=== PATIENT | female | born 1940 | race Caucasian/White ===

== ENCOUNTER 2020-01-11 10:41 | Inpatient (IN) ==
[2020-01-11 11:28] LABS: Hematocrit 49.8 % (35.3-44.9); Hemoglobin 16.1 g/dL (11.5-15.4); Mean Corpuscular HGB Conc 32.3 g/dL (31.6-35.5); Mean Corpuscular Hemoglobin 28.8 pg (28.0-33.3); Mean Corpuscular Volume 88.9 fL (83.0-100.0); Mean Platelet Volume 11.1 fL (9.4-12.4); Platelet Count 229 K/mcL (140-400); Red Cell Distribution Width 12.8 % (11.5-14.5); Segmented Neutrophils % 63.1 %; White Blood Count 6.3 K/mcL (4.3-11.1)
[2020-01-11 11:29] LABS: Basophils % 0.6 %; Eosinophils # 0.1 K/mcL (0.0-0.6); Eosinophils % 2.2 %; Immature Granulocytes % 0.3 % (0-4); Lymphocytes # 1.6 K/mcL (0.6-4.6); Lymphocytes % 24.8 %; Monocytes # 0.6 K/mcL (0.0-1.3); Neutrophils # 3.9 K/mcL (1.6-8.9)
[2020-01-11 11:34] LABS: INR 1.9; Prothrombin Time 21.1 Seconds (9.4-12.1)
[2020-01-11 11:50] LABS: Alanine Aminotransferase 18 Units/L (7-52); Albumin/Globulin Ratio 1.3 (1.1-2.2); Alkaline Phosphatase 82 Units/L (34-104); Aspartate Amino Transferase 18 Units/L (13-39); BUN/Creatinine Ratio 15 (6-26); Bilirubin,Total 1.3 mg/dL (0.3-1.0); Blood Urea Nitrogen 16 mg/dL (8-23); Calcium 9.7 mg/dL (8.6-10.3); Carbon Dioxide 25 mEq/L (23-29); Chloride 98 mEq/L (98-107); Globulin 3.2 g/dL (2.4-3.5); Glucose 397 mg/dL (70-105); Osmolality,Calculated 290 (280-300); Potassium 4.6 mEq/L (3.5-5.1); Sodium 131 mEq/L (136-145); Total Protein 7.2 g/dL (6.4-8.9); Troponin I < 0.03 ng/mL (< 0.04); eGFR For African Americans 58 (> 60); eGFR For Non-African Americans 48 (> 60)
[2020-01-11] MEDS ORDERED: Naloxone 0.4 MG/ML INJ IVP PRN (12:32)
[2020-01-11] MEDS ORDERED: D5% in Water 1,000 ML IVC PRN (12:33)
[2020-01-11] MEDS ORDERED: Dextrose Gel 15 GM/37.5 ML TUBE PO PRN ×2 (12:33)
[2020-01-11] MEDS ORDERED: *HR* Dextrose 50 % in Water (Vial) 50 ML VIAL IVP PRN (12:33)
[2020-01-11] MEDS ORDERED: Perflutren Lipid Microsphere 1.3 ML in 0.9 % Sodium Chloride 8.7 ML IVP PRN (12:38)
[2020-01-11 13:09] LABS: Thyroid Stimulating Hormone 5.033 mcIU/mL (0.340-5.600)
[2020-01-11] MEDS: Insulin DETEMIR 100 UNIT/ML X5UNITS SQ SCH ×2 (15:11→17:33)
[2020-01-11] MEDS: Insulin LISPRO 300 UNITS/3 ML VIAL SQ SCH ×3 (15:11→20:45)
[2020-01-11] MEDS: Apixaban 5 MG TABLET PO SCH (20:42)
[2020-01-11] MEDS: Sennosides/Docusate Sodium TABLET PO SCH (20:43)
[2020-01-12] MEDS ORDERED: Regadenoson 0.4 MG/5 ML SYRINGE IVP ONE (06:25)
[2020-01-12] MEDS: amLODIPine 5 MG TABLET PO SCH (09:34)
[2020-01-12] MEDS: Sennosides/Docusate Sodium TABLET PO SCH ×2 (09:34→20:55)
[2020-01-12] MEDS: Apixaban 5 MG TABLET PO SCH (09:35)
[2020-01-12] MEDS: Insulin DETEMIR 100 UNIT/ML X5UNITS SQ SCH (09:35)
[2020-01-12] MEDS: Insulin LISPRO 300 UNITS/3 ML VIAL SQ SCH ×4 (09:35→20:56)
[2020-01-12] MEDS: atenoloL 25 MG TABLET PO SCH (09:35)
[2020-01-12] MEDS: Aspirin Enteric Coated 81 MG Tablet PO SCH (09:35)
[2020-01-13] MEDS ORDERED: Morphine Sulfate 2 MG/ML SYRINGE IVP PRN (06:23)
[2020-01-13] MEDS: Insulin LISPRO 300 UNITS/3 ML VIAL SQ SCH ×4 (07:30→20:41)
[2020-01-13] MEDS: Sennosides/Docusate Sodium TABLET PO SCH ×2 (10:46→21:25)
[2020-01-13] MEDS: amLODIPine 5 MG TABLET PO SCH (10:47)
[2020-01-13] MEDS: atenoloL 25 MG TABLET PO SCH (10:47)
[2020-01-13] MEDS: Aspirin Enteric Coated 81 MG Tablet PO SCH (10:47)
[2020-01-13] MEDS: Insulin DETEMIR 100 UNIT/ML X5UNITS SQ SCH (10:48)
[2020-01-13] MEDS ORDERED: *HR* Midazolam HCl 2 MG/2 ML VIAL ONE (11:28)
[2020-01-13] MEDS ORDERED: *HR* FentaNYL (PF) 100 MCG/2 ML VIAL ONE (11:28)
[2020-01-13] MEDS ORDERED: Nitroglycerin 1,000 MCG/10 ML VIAL IV ONE (11:46)
[2020-01-13] MEDS ORDERED: ISOVUE-370 200 ML INFUS..BTL ONE (11:46)
[2020-01-13] MEDS ORDERED: *HR* Heparin 10,000 UNIT/10 ML VIAL ONE (11:46)
[2020-01-13] MEDS ORDERED: 0.9 % Sodium Chloride 2,000 ML ONE (11:46)
[2020-01-13] MEDS ORDERED: Heparin 1,000 UNITS/500 mL 500 ML ONE (11:46)
[2020-01-13] MEDS ORDERED: *HR* Heparin 5,000 UNIT/ML VIAL IVP PRN ×3 (14:43→15:21)
[2020-01-13] MEDS ORDERED: *HR* Heparin 5,000 UNIT/ML VIAL IVP ONE ×2 (14:43→15:21)
[2020-01-13] MEDS ORDERED: Heparin 25,000UNIT/250ML 1/2NS 25,000 UNIT/250 ML IV.SOLN IVC SCH ×2 (14:45→15:30)
[2020-01-13 15:52] LABS: Hematocrit 49.4 % (35.3-44.9); Hemoglobin 16.2 g/dL (11.5-15.4); Mean Corpuscular HGB Conc 32.8 g/dL (31.6-35.5); Mean Corpuscular Hemoglobin 29.7 pg (28.0-33.3); Mean Corpuscular Volume 90.5 fL (83.0-100.0); Mean Platelet Volume 10.6 fL (9.4-12.4); Platelet Count 227 K/mcL (140-400); Red Blood Count 5.46 M/mcL (3.82-4.97); White Blood Count 5.9 K/mcL (4.3-11.1)
[2020-01-13 16:03] LABS: INR 1.3; Prothrombin Time 14.7 Seconds (9.4-12.1)
[2020-01-13 16:08] LABS: Heparin anti-factor XA UFH 1.04 IU/mL (0.30-0.70)
[2020-01-13] MEDS: Heparin 25,000UNIT/250ML 1/2NS 25,000 UNIT/250 ML IV.SOLN IVC SCH (16:27)
[2020-01-14 02:18] LABS: BUN/Creatinine Ratio 20 (6-26); Blood Urea Nitrogen 18 mg/dL (8-23); Calcium 9.2 mg/dL (8.6-10.3); Carbon Dioxide 22 mEq/L (23-29); Chloride 105 mEq/L (98-107); Glucose 182 mg/dL (70-105); Magnesium 1.8 mg/dL (1.6-2.6); Osmolality,Calculated 287 (280-300); Phosphorous 3.5 mg/dL (2.7-4.5); Potassium 3.9 mEq/L (3.5-5.1); Sodium 135 mEq/L (136-145); eGFR For African Americans > 60 (> 60); eGFR For Non-African Americans 59 (> 60)
[2020-01-14] MEDS: Insulin LISPRO 300 UNITS/3 ML VIAL SQ SCH ×4 (07:30→20:04)
[2020-01-14] MEDS: Sennosides/Docusate Sodium TABLET PO SCH ×2 (11:29→20:09)
[2020-01-14] MEDS: Aspirin Enteric Coated 81 MG Tablet PO SCH (11:33)
[2020-01-14] MEDS: Insulin DETEMIR 100 UNIT/ML X5UNITS SQ SCH (11:34)
[2020-01-14] MEDS: amLODIPine 5 MG TABLET PO SCH (11:34)
[2020-01-14] MEDS: atenoloL 25 MG TABLET PO SCH (11:34)
[2020-01-14] MEDS: Heparin 25,000UNIT/250ML 1/2NS 25,000 UNIT/250 ML IV.SOLN IVC SCH (20:45)
[2020-01-15 00:59] LABS: Basophils # 0.1 K/mcL (0.0-0.2); Eosinophils # 0.2 K/mcL (0.0-0.6); Eosinophils % 3.7 %; Hematocrit 46.4 % (35.3-44.9); Hemoglobin 15.2 g/dL (11.5-15.4); Immature Granulocytes % 0.2 % (0-4); Lymphocytes # 2.2 K/mcL (0.6-4.6); Lymphocytes % 36.1 %; Mean Corpuscular HGB Conc 32.8 g/dL (31.6-35.5); Mean Corpuscular Hemoglobin 28.8 pg (28.0-33.3); Mean Corpuscular Volume 87.9 fL (83.0-100.0); Monocytes # 0.7 K/mcL (0.0-1.3); Monocytes % 11.2 %; Platelet Count 239 K/mcL (140-400); Red Blood Count 5.28 M/mcL (3.82-4.97); Segmented Neutrophils % 47.8 %; White Blood Count 6.2 K/mcL (4.3-11.1)
[2020-01-15 01:19] LABS: BUN/Creatinine Ratio 16 (6-26); Blood Urea Nitrogen 16 mg/dL (8-23); Calcium 9.6 mg/dL (8.6-10.3); Carbon Dioxide 25 mEq/L (23-29); Chloride 105 mEq/L (98-107); Glucose 102 mg/dL (70-105); Osmolality,Calculated 287 (280-300); Potassium 3.8 mEq/L (3.5-5.1); Sodium 138 mEq/L (136-145); eGFR For African Americans > 60 (> 60); eGFR For Non-African Americans 52 (> 60)
[2020-01-15] MEDS: Nitroglycerin 0.4 MG TAB.SUBL SL PRN (06:52)
[2020-01-15 08:05] LABS: INR 1.2; Prothrombin Time 13.5 Seconds (9.4-12.1)
[2020-01-15 08:07] LABS: Activated Partial Thrombo Time 54.4 Seconds (26.0-36.0)
[2020-01-15 08:19] LABS: Chol/HDL Ratio 3.1 (0-4.9)
[2020-01-15] MEDS: amLODIPine 5 MG TABLET PO SCH (08:30)
[2020-01-15] MEDS: atenoloL 25 MG TABLET PO SCH (08:30)
[2020-01-15] MEDS: Aspirin Enteric Coated 81 MG Tablet PO SCH (08:30)
[2020-01-15] MEDS: Sennosides/Docusate Sodium TABLET PO SCH ×2 (08:30→21:05)
[2020-01-15] MEDS: Insulin LISPRO 300 UNITS/3 ML VIAL SQ SCH ×4 (08:35→20:58)
[2020-01-15] MEDS: Insulin DETEMIR 100 UNIT/ML X5UNITS SQ SCH (08:35)
[2020-01-15 10:05] LABS: Estimated Average Glucose 315 mg/dl
[2020-01-15 13:34] LABS: Bacteria,Urine Few per hpf (None-Few); Bilirubin,Urine Negative (Negative); Blood,Urine Trace (Negative); Clarity,Urine Clear (Clear); Color,Urine Light-Yellow (Yellow); Glucose,Urine (UA) 200 mg/dL (Normal); Hyaline Casts,Urine Few per lpf (None Seen); Ketones,Urine Negative (Negative); Leukocyte Esterase,Urine Large (Negative); Mucus,Urine Few per lpf (None-Few); Nitrite,Urine Negative (Negative); PH,Urine 5.5 pH Units (5.0-8.0); Protein,Urine Negative (Neg-Trace); RBC,Urine 0-3 per hpf (0-3); Specific Gravity,Urine 1.011 (1.010-1.025); Squamous Epithelial Cell,Urine Few per hpf (None-Few); Transitional Epi Cells,Urine Few per hpf (None-Few); Urobilinogen,Urine Normal (Normal); WBC,Urine 15-30 per hpf (0-3)
[2020-01-15] MEDS ORDERED: Insulin DETEMIR 100 UNIT/ML X5UNITS SQ ONE (17:06)
[2020-01-16] MEDS: Heparin 25,000UNIT/250ML 1/2NS 25,000 UNIT/250 ML IV.SOLN IVC SCH ×2 (00:23→10:52)
[2020-01-16] MEDS: *HR* Heparin 5,000 UNIT/ML VIAL IVP PRN ×2 (00:24→19:04)
[2020-01-16 06:53] LABS: BUN/Creatinine Ratio 18 (6-26); Blood Urea Nitrogen 17 mg/dL (8-23); Calcium 8.9 mg/dL (8.6-10.3); Carbon Dioxide 23 mEq/L (23-29); Chloride 106 mEq/L (98-107); Glucose 191 mg/dL (70-105); Osmolality,Calculated 291 (280-300); Potassium 3.9 mEq/L (3.5-5.1); Sodium 137 mEq/L (136-145); eGFR For African Americans > 60 (> 60); eGFR For Non-African Americans 57 (> 60)
[2020-01-16 07:36] LABS: Basophils % 0.6 %; Eosinophils # 0.2 K/mcL (0.0-0.6); Eosinophils % 3.5 %; Hematocrit 44.1 % (35.3-44.9); Immature Granulocytes % 0.3 % (0-4); Lymphocytes # 1.9 K/mcL (0.6-4.6); Lymphocytes % 30.8 %; Mean Corpuscular HGB Conc 31.7 g/dL (31.6-35.5); Mean Corpuscular Hemoglobin 28.3 pg (28.0-33.3); Mean Corpuscular Volume 89.3 fL (83.0-100.0); Mean Platelet Volume 11.7 fL (9.4-12.4); Monocytes # 0.7 K/mcL (0.0-1.3); Monocytes % 11.3 %; Neutrophils # 3.4 K/mcL (1.6-8.9); Platelet Count 201 K/mcL (140-400); Red Blood Count 4.94 M/mcL (3.82-4.97); Segmented Neutrophils % 53.5 %; White Blood Count 6.3 K/mcL (4.3-11.1)
[2020-01-16] MEDS: Insulin LISPRO 300 UNITS/3 ML VIAL SQ SCH ×4 (08:30→20:19)
[2020-01-16] MEDS: Insulin DETEMIR 100 UNIT/ML X5UNITS SQ SCH (09:34)
[2020-01-16] MEDS: amLODIPine 5 MG TABLET PO SCH (09:35)
[2020-01-16] MEDS: Sennosides/Docusate Sodium TABLET PO SCH ×2 (09:35→20:25)
[2020-01-16] MEDS: atenoloL 25 MG TABLET PO SCH (09:35)
[2020-01-16] MEDS: Aspirin Enteric Coated 81 MG Tablet PO SCH (09:35)
[2020-01-17 00:59] LABS: Basophils % 0.6 %; Eosinophils # 0.2 K/mcL (0.0-0.6); Eosinophils % 2.4 %; Hematocrit 42.7 % (35.3-44.9); Immature Granulocytes % 0.1 % (0-4); Lymphocytes # 1.7 K/mcL (0.6-4.6); Mean Corpuscular HGB Conc 32.8 g/dL (31.6-35.5); Mean Corpuscular Hemoglobin 29.2 pg (28.0-33.3); Mean Corpuscular Volume 89.1 fL (83.0-100.0); Monocytes # 0.8 K/mcL (0.0-1.3); Monocytes % 11.8 %; Neutrophils # 4.1 K/mcL (1.6-8.9); Platelet Count 200 K/mcL (140-400); Red Blood Count 4.79 M/mcL (3.82-4.97); Segmented Neutrophils % 60.1 %; White Blood Count 6.8 K/mcL (4.3-11.1)
[2020-01-17 01:12] LABS: BUN/Creatinine Ratio 16 (6-26); Blood Urea Nitrogen 16 mg/dL (8-23); Calcium 9.1 mg/dL (8.6-10.3); Carbon Dioxide 24 mEq/L (23-29); Chloride 103 mEq/L (98-107); Glucose 195 mg/dL (70-105); Magnesium 1.6 mg/dL (1.6-2.6); Osmolality,Calculated 287 (280-300); Potassium 4.1 mEq/L (3.5-5.1); Sodium 135 mEq/L (136-145); eGFR For African Americans > 60 (> 60); eGFR For Non-African Americans 55 (> 60)
[2020-01-17] MEDS: *HR* Heparin 5,000 UNIT/ML VIAL IVP PRN (01:50)
[2020-01-17] MEDS: Magnesium Oxide 400 MG TABLET PO SCH (08:08)
[2020-01-17] MEDS: Aspirin Enteric Coated 81 MG Tablet PO SCH (08:08)
[2020-01-17] MEDS: Chlorhexidine Rinse 15 ML MOUTHWASH MM SCH ×2 (08:08→20:28)
[2020-01-17] MEDS: Insulin LISPRO 300 UNITS/3 ML VIAL SQ SCH ×5 (08:09→23:39)
[2020-01-17] MEDS: Nitroglycerin 0.4 MG TAB.SUBL SL PRN (08:10)
[2020-01-17] MEDS: amLODIPine 5 MG TABLET PO SCH (08:11)
[2020-01-17] MEDS: Sennosides/Docusate Sodium TABLET PO SCH ×2 (08:11→20:35)
[2020-01-17] MEDS: atenoloL 25 MG TABLET PO SCH (08:18)
[2020-01-17] MEDS: Insulin DETEMIR 100 UNIT/ML X5UNITS SQ SCH (08:21)
[2020-01-17] MEDS: Heparin 25,000UNIT/250ML 1/2NS 25,000 UNIT/250 ML IV.SOLN IVC SCH (17:47)
[2020-01-18] MEDS: Heparin 25,000UNIT/250ML 1/2NS 25,000 UNIT/250 ML IV.SOLN IVC SCH (05:41)
[2020-01-18] MEDS: Insulin LISPRO 300 UNITS/3 ML VIAL SQ SCH ×2 (05:58→16:14)
[2020-01-18] MEDS ORDERED: Dextrose 50 % in Water (Vial) 30 ML, Sodium Bicarbonate 20 MEQ, Lidocaine 1% 5 ML, Insu... TH ONE ×3 (06:00)
[2020-01-18] MEDS ORDERED: Dextrose 50 % in Water (Vial) 30 ML, Sodium Bicarbonate 20 MEQ, Potassium Chloride 15 M... TH ONE (06:00)
[2020-01-18] MEDS ORDERED: Insulin Human Regular 100 UNIT in 0.9 % Sodium Chloride 100 ML IV PRN (06:00)
[2020-01-18] MEDS ORDERED: Aspirin 81 MG TAB.CHEW PO ONE (06:00)
[2020-01-18] MEDS ORDERED: Norepinephrine 4 MG in 0.9 % Sodium Chloride 250 ML IVC PRN (06:00)
[2020-01-18] MEDS ORDERED: Heparin 15,000 UNIT in 0.9 % Sodium Chloride 500 ML IV ONE (06:00)
[2020-01-18 06:13] LABS: Basophils # 0.1 K/mcL (0.0-0.2); Basophils % 0.6 %; Eosinophils # 0.1 K/mcL (0.0-0.6); Eosinophils % 1.5 %; Hemoglobin 14.8 g/dL (11.5-15.4); Immature Granulocytes % 0.4 % (0-4); Lymphocytes # 1.7 K/mcL (0.6-4.6); Lymphocytes % 20.6 %; Mean Corpuscular HGB Conc 32.2 g/dL (31.6-35.5); Mean Corpuscular Volume 90.2 fL (83.0-100.0); Mean Platelet Volume 11.6 fL (9.4-12.4); Monocytes # 0.9 K/mcL (0.0-1.3); Monocytes % 10.8 %; Neutrophils # 5.6 K/mcL (1.6-8.9); Platelet Count 242 K/mcL (140-400); Red Cell Distribution Width 12.7 % (11.5-14.5); Segmented Neutrophils % 66.1 %; White Blood Count 8.4 K/mcL (4.3-11.1)
[2020-01-18 06:28] LABS: INR 1.2; Prothrombin Time 13.3 Seconds (9.4-12.1)
[2020-01-18 06:32] LABS: BUN/Creatinine Ratio 14 (6-26); Blood Urea Nitrogen 14 mg/dL (8-23); Calcium 9.5 mg/dL (8.6-10.3); Carbon Dioxide 24 mEq/L (23-29); Chloride 103 mEq/L (98-107); Glucose 213 mg/dL (70-105); Magnesium 1.7 mg/dL (1.6-2.6); Osmolality,Calculated 287 (280-300); Potassium 4.2 mEq/L (3.5-5.1); Sodium 135 mEq/L (136-145); eGFR For African Americans > 60 (> 60); eGFR For Non-African Americans 54 (> 60)
[2020-01-18] MEDS ORDERED: *HR* Midazolam HCl 5 MG/5 ML VIAL IVP ONE (08:53)
[2020-01-18] MEDS ORDERED: *HR* FentaNYL (PF) 1,000 MCG/20 ML VIAL ONE (08:54)
[2020-01-18] MEDS ORDERED: *HR* Rocuronium Bromide 50 MG/5 ML VIAL ONE (08:55)
[2020-01-18] MEDS ORDERED: *HR* PHENYLEPHRINE 1,000 MCG/10 ML SYRINGE IVP ONE (08:55)
[2020-01-18] MEDS ORDERED: *HR* Etomidate 20 MG/10 ML AMPUL IVP ONE (08:56)
[2020-01-18] MEDS ORDERED: Famotidine 20 MG/2 ML VIAL ONE (08:56)
[2020-01-18] MEDS ORDERED: Calcium Gluconate 1,000 MG/10 ML VIAL ONE (08:58)
[2020-01-18] MEDS ORDERED: Protamine Sulfate 250 MG/25 ML VIAL IVP ONE (08:58)
[2020-01-18] MEDS ORDERED: Tranexamic Acid 1,000 MG/10 ML VIAL ONE ×2 (08:58→15:18)
[2020-01-18] MEDS ORDERED: *HR* Amiodarone 150 MG/3 ML VIAL IVPB ONE (09:01)
[2020-01-18] MEDS: atenoloL 25 MG TABLET PO SCH (09:25)
[2020-01-18] MEDS: Sennosides/Docusate Sodium TABLET PO SCH (09:35)
[2020-01-18] MEDS: Magnesium Oxide 400 MG TABLET PO SCH (09:35)
[2020-01-18] MEDS: amLODIPine 5 MG TABLET PO SCH (09:35)
[2020-01-18] MEDS: Aspirin Enteric Coated 81 MG Tablet PO SCH (09:35)
[2020-01-18] MEDS ORDERED: NiCARdipine 2.5 MG/10 ML Syringe IVPB ONE (09:36)
[2020-01-18] MEDS ORDERED: CeFAZolin Syr 2,000MG/20 ML 2,000 MG/20 ML SYRINGE IVPB ONE (11:00)
[2020-01-18] MEDS ORDERED: Heparin 1,000 UNITS/500 mL IV.SOLN IR ONE (12:09)
[2020-01-18] MEDS ORDERED: *HR* Phenylephrine 10 MG/ML VIAL IVC ONE (12:09)
[2020-01-18] MEDS ORDERED: Albumin Human 25% 25 GM/100 ML IV.SOLN IVPB ONE (12:09)
[2020-01-18] MEDS ORDERED: *HR* Magnesium Sulfate 2 GM/50 ML PIGGYBACK IVPB ONE (12:09)
[2020-01-18] MEDS ORDERED: Tranexamic Acid 1,000 MG/10 ML VIAL IR ONE (12:09)
[2020-01-18] MEDS ORDERED: Clindamycin 600 MG/50 ML IV.SOLN IVPB ONE (12:09)
[2020-01-18] MEDS ORDERED: *HR* Heparin 10,000 UNIT/10 ML VIAL IR ONE (12:09)
[2020-01-18] MEDS ORDERED: Lidocaine 2% Syringe 100 MG/5 ML IVP ONE (12:09)
[2020-01-18] MEDS ORDERED: Mannitol 25% vial 12.5 GM/50 ML VIAL IVPB ONE (12:09)
[2020-01-18 12:23] LABS: ABG Base Excess -2 mEq/L (-2 to 3); ABG Chloride 102 mEq/L (98-107); ABG Glucose 237 mg/dL (60-95); ABG HCO3 25 mEq/L (21-27); ABG Ionized Calcium 1.22 mmol/L (1.15-1.35); ABG Oxygen Saturation 100 % (95-98); ABG PCO2 44 mmHg (35-45); ABG PH 7.35 pH Units (7.32-7.45); ABG PO2 267 mmHg (85-104); ABG TCO2 26 mEq/L (20-26)
[2020-01-18 13:48] LABS: ABG Base Excess -1 mEq/L (-2 to 3); ABG Chloride 102 mEq/L (98-107); ABG Glucose 253 mg/dL (60-95); ABG HCO3 23 mEq/L (21-27); ABG Ionized Calcium 1.18 mmol/L (1.15-1.35); ABG Oxygen Saturation 100 % (95-98); ABG PCO2 34 mmHg (35-45); ABG PH 7.43 pH Units (7.32-7.45); ABG PO2 232 mmHg (85-104); ABG TCO2 24 mEq/L (20-26)
[2020-01-18 14:16] LABS: ABG Base Excess -1 mEq/L (-2 to 3); ABG Chloride 97 mEq/L (98-107); ABG Glucose 286 mg/dL (60-95); ABG HCO3 22 mEq/L (21-27); ABG Ionized Calcium 0.97 mmol/L (1.15-1.35); ABG Oxygen Saturation 100 % (95-98); ABG PCO2 29 mmHg (35-45); ABG PH 7.49 pH Units (7.32-7.45); ABG PO2 630 mmHg (85-104); ABG TCO2 22 mEq/L (20-26)
[2020-01-18 15:08] LABS: ABG Base Excess -2 mEq/L (-2 to 3); ABG Chloride 95 mEq/L (98-107); ABG Glucose 254 mg/dL (60-95); ABG HCO3 22 mEq/L (21-27); ABG Ionized Calcium 1.03 mmol/L (1.15-1.35); ABG PCO2 34 mmHg (35-45); ABG PH 7.42 pH Units (7.32-7.45); ABG PO2 > 630 mmHg (85-104); ABG TCO2 23 mEq/L (20-26)
[2020-01-18 15:34] LABS: ABG Base Excess -2 mEq/L (-2 to 3); ABG Chloride 97 mEq/L (98-107); ABG Glucose 263 mg/dL (60-95); ABG HCO3 22 mEq/L (21-27); ABG Ionized Calcium 1.32 mmol/L (1.15-1.35); ABG Oxygen Saturation 100 % (95-98); ABG PCO2 36 mmHg (35-45); ABG PO2 364 mmHg (85-104); ABG TCO2 23 mEq/L (20-26)
[2020-01-18] MEDS ORDERED: *HR* Dextrose 50 % in Water (Vial) 50 ML VIAL IVP PRN (15:48)
[2020-01-18] MEDS ORDERED: Insulin Regular, Human 100 UNIT/ML IV PRN ×2 (15:48→16:30)
[2020-01-18] MEDS ORDERED: Potassium Chloride 40 MEQ/200 ML BAG IVPB PRN (15:48)
[2020-01-18] MEDS ORDERED: Acetaminophen 325 MG TABLET PO PRN (15:51)
[2020-01-18] MEDS ORDERED: Amiodarone Premix 360 MG/200 ML BAG IVC ONE (15:51)
[2020-01-18] MEDS ORDERED: Calcium Gluconate 1gm/50mL 1 GM/50 ML BAG IVPB PRN (15:51)
[2020-01-18] MEDS ORDERED: Acetaminophen 650 MG RECTAL SUPP RC PRN (15:51)
[2020-01-18] MEDS ORDERED: *HR* FentaNYL (PF) 100 MCG/2 ML VIAL IVP PRN (15:51)
[2020-01-18] MEDS ORDERED: Ondansetron 4 MG/2 ML VIAL IVP PRN (15:51)
[2020-01-18 16:03] LABS: ABG Base Excess -2 mEq/L (-2 to 3); ABG Chloride 98 mEq/L (98-107); ABG Glucose 215 mg/dL (60-95); ABG HCO3 21 mEq/L (21-27); ABG Oxygen Saturation 100 % (95-98); ABG PCO2 32 mmHg (35-45); ABG PH 7.44 pH Units (7.32-7.45); ABG PO2 192 mmHg (85-104); ABG TCO2 22 mEq/L (20-26)
[2020-01-18] MEDS: Norepinephrine 4 MG/254 ML IV.SOLN IVC SCH (16:20)
[2020-01-18] MEDS ORDERED: 0.9 % Sodium Chloride 500 ML ONE (16:39)
[2020-01-18 16:47] LABS: ABG Base Excess -2 mEq/L (-2 to 3); ABG HCO3 21 mEq/L (21-27); ABG Oxygen Saturation 99 % (95-98); ABG PCO2 30 mmHg (35-45); ABG PH 7.46 pH Units (7.32-7.45); ABG PO2 122 mmHg (85-104); ABG TCO2 22 mEq/L (20-26); Blood Gas Modality ASSIST CONTROL; Blood Gas VT 500 cc
[2020-01-18] MEDS: Insulin Human Regular 100 UNIT in 0.9 % Sodium Chloride 100 ML IVC SCH (16:47)
[2020-01-18 16:49] LABS: Basophils # 0.1 K/mcL (0.0-0.2); Basophils % 0.5 %; Eosinophils # 0.3 K/mcL (0.0-0.6); Hematocrit 36.5 % (35.3-44.9); Immature Granulocytes % 0.8 % (0-4); Lymphocytes # 2.1 K/mcL (0.6-4.6); Lymphocytes % 16.4 %; Mean Corpuscular HGB Conc 32.3 g/dL (31.6-35.5); Mean Corpuscular Hemoglobin 28.7 pg (28.0-33.3); Mean Corpuscular Volume 88.8 fL (83.0-100.0); Mean Platelet Volume 10.6 fL (9.4-12.4); Monocytes % 7.4 %; Neutrophils # 9.5 K/mcL (1.6-8.9); Platelet Count 131 K/mcL (140-400); Red Blood Count 4.11 M/mcL (3.82-4.97); Segmented Neutrophils % 72.9 %
[2020-01-18 16:52] LABS: Hemoglobin 11.8 g/dL (11.5-15.4)
[2020-01-18 16:57] LABS: INR 1.6; Prothrombin Time 18.3 Seconds (9.4-12.1)
[2020-01-18 17:00] LABS: Activated Partial Thrombo Time 32.1 Seconds (26.0-36.0)
[2020-01-18 17:05] LABS: BUN/Creatinine Ratio 13 (6-26); Blood Urea Nitrogen 11 mg/dL (8-23); Calcium 9.5 mg/dL (8.6-10.3); Carbon Dioxide 23 mEq/L (23-29); Chloride 106 mEq/L (98-107); Glucose 174 mg/dL (70-105); Magnesium 2.3 mg/dL (1.6-2.6); Osmolality,Calculated 286 (280-300); Potassium 3.8 mEq/L (3.5-5.1); Sodium 136 mEq/L (136-145); eGFR For African Americans > 60 (> 60); eGFR For Non-African Americans > 60 (> 60)
[2020-01-18] MEDS: Amiodarone Premix 360 MG/200 ML BAG IVC SCH (17:42)
[2020-01-18] MEDS: niCARdipine 20 MG/200 ML MLS IVC SCH ×3 (17:42→20:15)
[2020-01-18] MEDS: 0.9 % Sodium Chloride w KCl 20 MEQ/1,000 ML MLS IVC SCH (17:48)
[2020-01-18] MEDS: Pantoprazole 40 MG VIAL IVP SCH (17:48)
[2020-01-18] MEDS: Furosemide 20 MG/2 ML VIAL IVP SCH (17:48)
[2020-01-18] MEDS: Metoclopramide 10 MG/2 ML VIAL IVP SCH ×2 (17:48→23:38)
[2020-01-18 19:52] LABS: ABG Base Excess 4 mEq/L (-2 to 3); ABG HCO3 26 mEq/L (21-27); ABG Oxygen Saturation 99 % (95-98); ABG PCO2 32 mmHg (35-45); ABG PH 7.52 pH Units (7.32-7.45); ABG PO2 100 mmHg (85-104); ABG TCO2 27 mEq/L (20-26); Blood Gas VT 500 cc
[2020-01-18] MEDS: CeFAZolin 2 GM/120 ML BAG IVPB SCH (20:34)
[2020-01-18] MEDS: Chlorhexidine Rinse 15 ML MOUTHWASH MM SCH (20:34)
[2020-01-18] MEDS: *HR* OxyCODONE/APAP 5/325 TABLET PO PRN (22:17)
[2020-01-18] MEDS: Albumin Human 5% 12.5 GM/250 ML IV.SOLN IVPB PRN ×3 (23:03→23:31)
[2020-01-18 23:45] LABS: ABG Base Excess 4 mEq/L (-2 to 3); ABG HCO3 26 mEq/L (21-27); ABG Oxygen Saturation 99 % (95-98); ABG PCO2 33 mmHg (35-45); ABG PH 7.52 pH Units (7.32-7.45); ABG PO2 119 mmHg (85-104); ABG TCO2 27 mEq/L (20-26); Blood Gas VT 500 cc
[2020-01-19] MEDS: niCARdipine 20 MG/200 ML MLS IVC SCH ×5 (03:23→19:30)
[2020-01-19 04:04] LABS: ABG Base Excess 4 mEq/L (-2 to 3); ABG HCO3 27 mEq/L (21-27); ABG Oxygen Saturation 98 % (95-98); ABG PCO2 35 mmHg (35-45); ABG PO2 96 mmHg (85-104); ABG TCO2 28 mEq/L (20-26); Blood Gas VT 500 cc
[2020-01-19 04:10] LABS: Basophils % 0.3 %; Eosinophils % 0.1 %; Hematocrit 34.7 % (35.3-44.9); Hemoglobin 11.3 g/dL (11.5-15.4); Immature Granulocytes % 0.6 % (0-4); Lymphocytes # 1.1 K/mcL (0.6-4.6); Lymphocytes % 10.4 %; Mean Corpuscular HGB Conc 32.6 g/dL (31.6-35.5); Mean Corpuscular Hemoglobin 28.8 pg (28.0-33.3); Mean Corpuscular Volume 88.3 fL (83.0-100.0); Mean Platelet Volume 11.4 fL (9.4-12.4); Monocytes # 1.2 K/mcL (0.0-1.3); Monocytes % 11.6 %; Neutrophils # 8.2 K/mcL (1.6-8.9); Platelet Count 148 K/mcL (140-400); Red Blood Count 3.93 M/mcL (3.82-4.97); Red Cell Distribution Width 13.1 % (11.5-14.5); White Blood Count 10.7 K/mcL (4.3-11.1)
[2020-01-19] MEDS: *HR* OxyCODONE/APAP 5/325 TABLET PO PRN ×4 (04:13→20:25)
[2020-01-19 04:16] LABS: INR 1.3; Prothrombin Time 15.3 Seconds (9.4-12.1)
[2020-01-19 04:19] LABS: Activated Partial Thrombo Time 27.9 Seconds (26.0-36.0)
[2020-01-19 04:31] LABS: Calcium 9.6 mg/dL (8.6-10.3); Magnesium 1.9 mg/dL (1.6-2.6); Potassium 3.6 mEq/L (3.5-5.1)
[2020-01-19 04:48] LABS: ABG Base Excess 2 mEq/L (-2 to 3); ABG HCO3 26 mEq/L (21-27); ABG Oxygen Saturation 98 % (95-98); ABG PCO2 38 mmHg (35-45); ABG PH 7.45 pH Units (7.32-7.45); ABG PO2 101 mmHg (85-104); ABG TCO2 27 mEq/L (20-26); Blood Gas Modality ASSIST CONTROL; Blood Gas Pressure Support 10 cm H2O
[2020-01-19] MEDS: Metoclopramide 10 MG/2 ML VIAL IVP SCH ×4 (05:06→23:48)
[2020-01-19] MEDS: CeFAZolin 2 GM/120 ML BAG IVPB SCH (05:06)
[2020-01-19] MEDS: Albumin Human 5% 12.5 GM/250 ML IV.SOLN IVPB PRN (05:08)
[2020-01-19 05:57] LABS: ABG Base Excess 2 mEq/L (-2 to 3); ABG HCO3 28 mEq/L (21-27); ABG Oxygen Saturation 98 % (95-98); ABG PCO2 48 mmHg (35-45); ABG PH 7.38 pH Units (7.32-7.45); ABG PO2 114 mmHg (85-104); ABG TCO2 30 mEq/L (20-26)
[2020-01-19] MEDS: Furosemide 20 MG/2 ML VIAL IVP SCH ×2 (08:48→17:05)
[2020-01-19] MEDS: Aspirin Enteric Coated 81 MG Tablet PO SCH (08:49)
[2020-01-19] MEDS: Chlorhexidine Rinse 15 ML MOUTHWASH MM SCH ×2 (08:49→20:17)
[2020-01-19] MEDS: Pantoprazole 40 MG VIAL IVP SCH (08:49)
[2020-01-19] MEDS: Magnesium Oxide 400 MG TABLET PO SCH (08:49)
[2020-01-19] MEDS: atenoloL 25 MG TABLET PO SCH (08:50)
[2020-01-19] MEDS ORDERED: Dextrose Gel 15 GM/37.5 ML TUBE PO PRN ×2 (09:35)
[2020-01-19] MEDS ORDERED: D5% in Water 1,000 ML IVC PRN (09:35)
[2020-01-19] MEDS ORDERED: *HR* Dextrose 50 % in Water (Vial) 50 ML VIAL IVP PRN (09:35)
[2020-01-19] MEDS: Insulin LISPRO 300 UNITS/3 ML VIAL SQ SCH ×2 (11:27→16:11)
[2020-01-19] MEDS: 0.9 % Sodium Chloride w KCl 20 MEQ/1,000 ML MLS IVC SCH (13:14)
[2020-01-19] MEDS: Amiodarone Premix 360 MG/200 ML BAG IVC SCH (16:09)
[2020-01-19] MEDS: Norepinephrine 4 MG/254 ML IV.SOLN IVC SCH (16:10)
[2020-01-19] MEDS: Insulin Human Regular 100 UNIT in 0.9 % Sodium Chloride 100 ML IVC SCH (16:30)
[2020-01-19] MEDS: *HR* Heparin 5,000 UNIT/ML VIAL SQ SCH (17:05)
[2020-01-19] MEDS ORDERED: Insulin LISPRO 300 UNITS/3 ML VIAL SQ SCH (21:00)
[2020-01-20] MEDS: *HR* OxyCODONE/APAP 5/325 TABLET PO PRN ×3 (03:07→21:57)
[2020-01-20] MEDS: niCARdipine 20 MG/200 ML MLS IVC SCH (03:07)
[2020-01-20 03:38] LABS: Basophils % 0.3 %; Eosinophils % 0.3 %; Hematocrit 37.1 % (35.3-44.9); Hemoglobin 11.3 g/dL (11.5-15.4); Immature Granulocytes % 0.4 % (0-4); Lymphocytes # 1.5 K/mcL (0.6-4.6); Lymphocytes % 12.8 %; Mean Corpuscular HGB Conc 30.5 g/dL (31.6-35.5); Mean Corpuscular Hemoglobin 28.6 pg (28.0-33.3); Mean Corpuscular Volume 93.9 fL (83.0-100.0); Mean Platelet Volume 11.8 fL (9.4-12.4); Monocytes # 1.2 K/mcL (0.0-1.3); Monocytes % 10.4 %; Neutrophils # 8.7 K/mcL (1.6-8.9); Platelet Count 138 K/mcL (140-400); Red Blood Count 3.95 M/mcL (3.82-4.97); Red Cell Distribution Width 13.5 % (11.5-14.5); Segmented Neutrophils % 75.8 %; White Blood Count 11.5 K/mcL (4.3-11.1)
[2020-01-20 03:55] LABS: Calcium 9.1 mg/dL (8.6-10.3); Potassium 4.3 mEq/L (3.5-5.1)
[2020-01-20] MEDS: Metoclopramide 10 MG/2 ML VIAL IVP SCH ×3 (06:07→17:01)
[2020-01-20] MEDS: *HR* Heparin 5,000 UNIT/ML VIAL SQ SCH ×2 (06:07→17:01)
[2020-01-20] MEDS: Insulin LISPRO 300 UNITS/3 ML VIAL SQ SCH ×4 (07:55→21:56)
[2020-01-20] MEDS: Furosemide 20 MG/2 ML VIAL IVP SCH ×2 (07:57→17:01)
[2020-01-20] MEDS: Chlorhexidine Rinse 15 ML MOUTHWASH MM SCH ×2 (07:57→21:58)
[2020-01-20] MEDS: Pantoprazole 40 MG VIAL IVP SCH (07:57)
[2020-01-20] MEDS: Magnesium Oxide 400 MG TABLET PO SCH (07:57)
[2020-01-20] MEDS: atenoloL 25 MG TABLET PO SCH (07:57)
[2020-01-20] MEDS: Aspirin Enteric Coated 81 MG Tablet PO SCH (07:57)
[2020-01-20] MEDS ORDERED: Dextrose Gel 15 GM/37.5 ML TUBE PO PRN ×2 (14:01)
[2020-01-20] MEDS ORDERED: *HR* Dextrose 50 % in Water (Vial) 50 ML VIAL IVP PRN (14:01)
[2020-01-20] MEDS ORDERED: Nitroglycerin 0.4 MG TAB.SUBL SL PRN (14:01)
[2020-01-20] MEDS ORDERED: Ondansetron 4 MG/2 ML VIAL IVP PRN (14:01)
[2020-01-20] MEDS ORDERED: Acetaminophen 325 MG TABLET PO PRN (14:01)
[2020-01-20] MEDS ORDERED: Naloxone 0.4 MG/ML INJ IVP PRN (14:01)
[2020-01-20] MEDS ORDERED: D5% in Water 1,000 ML IVC PRN (14:01)
[2020-01-20] MEDS: *HR* Glimepiride 4 MG TABLET PO SCH (17:00)
[2020-01-21] MEDS: Metoclopramide 10 MG/2 ML VIAL IVP SCH ×4 (01:37→17:13)
[2020-01-21] MEDS: *HR* Heparin 5,000 UNIT/ML VIAL SQ SCH (05:10)
[2020-01-21] MEDS: Pantoprazole 40 MG VIAL IVP SCH (07:57)
[2020-01-21] MEDS: Furosemide 20 MG/2 ML VIAL IVP SCH ×2 (07:57→17:19)
[2020-01-21] MEDS: *HR* Glimepiride 4 MG TABLET PO SCH ×2 (07:58→17:09)
[2020-01-21] MEDS: Magnesium Oxide 400 MG TABLET PO SCH (07:58)
[2020-01-21] MEDS: Chlorhexidine Rinse 15 ML MOUTHWASH MM SCH ×2 (07:58→21:10)
[2020-01-21] MEDS: Insulin LISPRO 300 UNITS/3 ML VIAL SQ SCH ×4 (07:58→21:12)
[2020-01-21] MEDS: atenoloL 25 MG TABLET PO SCH (07:58)
[2020-01-21] MEDS: Aspirin Enteric Coated 81 MG Tablet PO SCH (08:01)
[2020-01-21] MEDS: Apixaban 5 MG TABLET PO SCH ×2 (09:25→21:07)
[2020-01-21] MEDS: amLODIPine 5 MG TABLET PO SCH (09:26)
[2020-01-21] MEDS: *HR* OxyCODONE/APAP 5/325 TABLET PO PRN (09:39)
[2020-01-22] MEDS: Pantoprazole 40 MG VIAL IVP SCH (09:24)
[2020-01-22] MEDS: Apixaban 5 MG TABLET PO SCH ×2 (09:28→20:35)
[2020-01-22] MEDS: atenoloL 25 MG TABLET PO SCH (09:28)
[2020-01-22] MEDS: Magnesium Oxide 400 MG TABLET PO SCH (09:28)
[2020-01-22] MEDS: Furosemide 20 MG/2 ML VIAL IVP SCH ×2 (09:28→16:47)
[2020-01-22] MEDS: Aspirin Enteric Coated 81 MG Tablet PO SCH (09:28)
[2020-01-22] MEDS: amLODIPine 5 MG TABLET PO SCH (09:28)
[2020-01-22] MEDS: Chlorhexidine Rinse 15 ML MOUTHWASH MM SCH ×2 (09:28→20:35)
[2020-01-22] MEDS: *HR* Glimepiride 4 MG TABLET PO SCH ×2 (09:29→16:44)
[2020-01-22] MEDS: Insulin LISPRO 300 UNITS/3 ML VIAL SQ SCH ×4 (09:31→20:41)
[2020-01-22] MEDS: *HR* OxyCODONE/APAP 5/325 TABLET PO PRN (20:35)
[2020-01-23 05:47] LABS: Basophils # 0.1 K/mcL (0.0-0.2); Basophils % 0.7 %; Eosinophils # 0.3 K/mcL (0.0-0.6); Eosinophils % 4.3 %; Hematocrit 36.5 % (35.3-44.9); Hemoglobin 11.5 g/dL (11.5-15.4); Immature Granulocytes % 0.6 % (0-4); Lymphocytes # 1.1 K/mcL (0.6-4.6); Lymphocytes % 16.6 %; Mean Corpuscular HGB Conc 31.5 g/dL (31.6-35.5); Mean Corpuscular Hemoglobin 28.9 pg (28.0-33.3); Mean Corpuscular Volume 91.7 fL (83.0-100.0); Mean Platelet Volume 10.4 fL (9.4-12.4); Monocytes # 0.9 K/mcL (0.0-1.3); Monocytes % 12.9 %; Neutrophils # 4.4 K/mcL (1.6-8.9); Platelet Count 197 K/mcL (140-400); Red Blood Count 3.98 M/mcL (3.82-4.97); Red Cell Distribution Width 13.2 % (11.5-14.5); Segmented Neutrophils % 64.9 %; White Blood Count 6.7 K/mcL (4.3-11.1)
[2020-01-23 06:01] LABS: BUN/Creatinine Ratio 25 (6-26); Blood Urea Nitrogen 20 mg/dL (8-23); Calcium 8.9 mg/dL (8.6-10.3); Carbon Dioxide 32 mEq/L (23-29); Chloride 98 mEq/L (98-107); Glucose 174 mg/dL (70-105); Osmolality,Calculated 291 (280-300); Potassium 3.5 mEq/L (3.5-5.1); Sodium 137 mEq/L (136-145); eGFR For African Americans > 60 (> 60); eGFR For Non-African Americans > 60 (> 60)
[2020-01-23] MEDS: Furosemide 20 MG/2 ML VIAL IVP SCH ×2 (07:54→16:40)
[2020-01-23] MEDS: Chlorhexidine Rinse 15 ML MOUTHWASH MM SCH ×2 (07:54→20:44)
[2020-01-23] MEDS: Pantoprazole 40 MG VIAL IVP SCH (07:54)
[2020-01-23] MEDS: Insulin LISPRO 300 UNITS/3 ML VIAL SQ SCH ×4 (07:55→22:06)
[2020-01-23] MEDS: amLODIPine 5 MG TABLET PO SCH (07:55)
[2020-01-23] MEDS: Apixaban 5 MG TABLET PO SCH ×2 (07:55→20:44)
[2020-01-23] MEDS: *HR* Glimepiride 4 MG TABLET PO SCH ×2 (07:55→16:40)
[2020-01-23] MEDS: Aspirin Enteric Coated 81 MG Tablet PO SCH (07:55)
[2020-01-23] MEDS: Magnesium Oxide 400 MG TABLET PO SCH (07:55)
[2020-01-23] MEDS: atenoloL 25 MG TABLET PO SCH (07:55)
[2020-01-24 05:15] LABS: Basophils # 0.1 K/mcL (0.0-0.2); Basophils % 0.8 %; Eosinophils # 0.3 K/mcL (0.0-0.6); Eosinophils % 3.9 %; Hemoglobin 11.9 g/dL (11.5-15.4); Immature Granulocytes % 0.8 % (0-4); Lymphocytes # 1.7 K/mcL (0.6-4.6); Lymphocytes % 25.3 %; Mean Corpuscular HGB Conc 31.3 g/dL (31.6-35.5); Mean Corpuscular Hemoglobin 28.4 pg (28.0-33.3); Mean Corpuscular Volume 90.7 fL (83.0-100.0); Mean Platelet Volume 10.2 fL (9.4-12.4); Monocytes # 0.9 K/mcL (0.0-1.3); Monocytes % 13.5 %; Neutrophils # 3.7 K/mcL (1.6-8.9); Platelet Count 211 K/mcL (140-400); Red Blood Count 4.19 M/mcL (3.82-4.97); Red Cell Distribution Width 13.3 % (11.5-14.5); Segmented Neutrophils % 55.7 %; White Blood Count 6.6 K/mcL (4.3-11.1)
[2020-01-24 05:35] LABS: BUN/Creatinine Ratio 22 (6-26); Blood Urea Nitrogen 18 mg/dL (8-23); Calcium 8.9 mg/dL (8.6-10.3); Carbon Dioxide 32 mEq/L (23-29); Chloride 97 mEq/L (98-107); Glucose 177 mg/dL (70-105); Osmolality,Calculated 290 (280-300); Potassium 3.3 mEq/L (3.5-5.1); Sodium 137 mEq/L (136-145); eGFR For African Americans > 60 (> 60); eGFR For Non-African Americans > 60 (> 60)
[2020-01-24] MEDS: Chlorhexidine Rinse 15 ML MOUTHWASH MM SCH ×2 (07:49→20:33)
[2020-01-24] MEDS: Furosemide 20 MG/2 ML VIAL IVP SCH (07:49)
[2020-01-24] MEDS: amLODIPine 5 MG TABLET PO SCH (07:49)
[2020-01-24] MEDS: Magnesium Oxide 400 MG TABLET PO SCH (07:50)
[2020-01-24] MEDS: Apixaban 5 MG TABLET PO SCH ×2 (07:50→20:36)
[2020-01-24] MEDS: *HR* Glimepiride 4 MG TABLET PO SCH ×2 (07:50→16:45)
[2020-01-24] MEDS: Aspirin Enteric Coated 81 MG Tablet PO SCH (07:50)
[2020-01-24] MEDS: atenoloL 25 MG TABLET PO SCH (07:50)
[2020-01-24] MEDS: Insulin LISPRO 300 UNITS/3 ML VIAL SQ SCH ×4 (07:53→20:42)
[2020-01-25 07:08] VITALS: BP 136/76
[2020-01-25] MEDS: atenoloL 25 MG TABLET PO SCH (08:23)
[2020-01-25] MEDS: *HR* Glimepiride 4 MG TABLET PO SCH (08:23)
[2020-01-25] MEDS ORDERED: FLU Vac QV 20-21 (6Month+)/PF 0.5 ML SYRINGE IM ONE (08:27)
[2020-01-25] MEDS: Apixaban 5 MG TABLET PO SCH (08:28)
[2020-01-25] MEDS: Chlorhexidine Rinse 15 ML MOUTHWASH MM SCH (08:28)
[2020-01-25] MEDS: amLODIPine 5 MG TABLET PO SCH (08:28)
[2020-01-25] MEDS: Magnesium Oxide 400 MG TABLET PO SCH (08:29)
[2020-01-25] MEDS: Aspirin Enteric Coated 81 MG Tablet PO SCH (08:29)
[2020-01-25] MEDS: Insulin LISPRO 300 UNITS/3 ML VIAL SQ SCH (08:35)
== END 2020-01-25 13:55 | disposition home or self-care (01) | DRG 229 ==
LOC: 3BNU 10:41 → EMEROOARM 10:41 → SUATTDRO 12:46 → 3BNU 14:15 → SUATTDRO 01-13 20:55 → ICNU 01-18 16:30 → 2NNU 01-20 18:17
PROVIDERS: ADMIT Internal Medicine; ATTEND Thoracic Surgery (Cardiothoracic Vascular Surgery)